=== PATIENT | male | born 1995 | race African-American/Black ===

== ENCOUNTER 2017-07-19 14:05 | Emergency (ER) | payer OTHER ==
[2017-07-19] MEDS ORDERED: Ondansetron INJ* 2 MG/ML VIAL IV ONE (14:51)
[2017-07-19] MEDS ORDERED: NS 0.9% 1000 ML* 1,000 ML IV ONE ×2 (14:51→17:38)
--- NOTE | 2017-07-19 14:57 | ED ---
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 This was preceded by chills/rigors. Tried to drink fluids last night and this morning - unable to hold anything down. Thirsty. Denies abdominal pain, diarrhea, urinary symptoms, testicular pain or swelling. No new foods or beverages. No sick contacts and he's shared past few meals with friends, they are not sick. Immunizations are up-to-date except for influenza. Denies URI symptoms. - History of Current Complaint Chief Complaint: EDNauseaVomitDiarrh Time Seen by Provider: 07/19/17 14:26 Stated Complaint: N/V Hx Obtained From: Patient Pain Intensity: 0 - Allergy/Home Medications Allergies/Adverse Reactions: Allergies Allergy/AdvReac Type Severity Reaction Status Date / Time lactulose Allergy Nausea And Verified 07/19/17 14:11 Vomiting PMH/Surg Hx/FS Hx/Imm Hx Previously Healthy: Yes GI History: Denies: Hx Cirrhosis, Hx Crohn's Disease, Hx Diverticulosis, Hx Gall Bladder Disease, Hx Gastroesophageal Reflux Disease, Hx Gastrointestinal Bleed, Hx Hiatal Hernia, Hx Irritable Bowel, Hx Obstructive Bowel, Hx Ulcer - Immunization History Immunizations Up to Date: Yes Infectious Disease History: No Infectious Disease History: Denies: Traveled Outside the [place] in Last 30 Days - Family History Known Family History: Positive: Diabetes - Social History Occupation: Student Lives: Dormitory/Roommates Alcohol Use: Weekly Substance Use Type: Reports: Marijuana - recreationally Hx Tobacco Use: Yes Smoking Status (MU): Current Some Day Smoker - Bidi's occasionally Review of Systems Positive: Chills, Fatigue ENT: Negative Cardiovascular: Negative Respiratory: Negative Positive: Vomiting, Nausea. Negative: Abdominal Pain, Diarrhea - still passing gas Genitourinary: Negative Negative: burning, dysuria, discharge, frequency, flank pain, hematuria, incontinence, pain, urgency - no penile d/c Musculoskeletal: Negative Skin: Negative Positive: Weakness - generalized Psychological: Normal All Other Systems Reviewed And Are Negative: Yes Physical Exam Triage Information Reviewed: Yes Vital Signs On Initial Exam: Initial Vitals Temp Pulse Resp BP Pulse Ox 98.8 F 100 16 119/68 99 07/19/17 14:07 07/19/17 14:07 07/19/17 14:07 07/19/17 14:07 07/19/17 14:07 Vital Signs Reviewed: Yes Appearance: Positive: No Pain Distress - appears mildly fatigued, Well-Nourished Skin: Positive: Warm, Skin Color Reflects Adequate Perfusion, Dry Head/Face: Positive: Normal Head/Face Inspection Eyes: Positive: Normal, EOMI, SCOT, Conjunctiva Clear ENT: Positive: Normal ENT inspection, Hearing grossly normal, Pharynx normal - oral mucosa somewhat moist, TMs normal, Uvula midline. Negative: Nasal congestion, Nasal drainage, Sinus tenderness Neck: Positive: Supple, Nontender, No Lymphadenopathy Respiratory/Lung Sounds: Positive: Clear to Auscultation, Breath Sounds Present. Negative: Rales, Rhonchi, Wheezes Cardiovascular: Positive: Normal, RRR - 72, S1, S2 Abdomen Description: Positive: Nontender, No Organomegaly, Soft. Negative: CVA Tenderness (R), CVA Tenderness (L), Distended, Guarding Bowel Sounds: Positive: Present Musculoskeletal: Positive: Normal, Strength/ROM Intact Neurological: Positive: Normal, Sensory/Motor Intact, Alert, Oriented to Person Place, Time, CN Intact II-III Psychiatric: Positive: Normal Diagnostics - Vital Signs Vital Signs Temp Pulse Resp BP Pulse Ox 07/19/17 14:07 98.8 F 100 16 119/68 99 - Laboratory Result Diagrams: 07/19/17 15:00 07/19/17 15:00 Lab Statement: Any lab studies that have been ordered have been reviewed, and results considered in the medical decision making process. Re-Evaluation - Re-Evaluation First Eval Change: Improved - resting - reports nausea resolved, reports "I think the fluids are helping" - still has 1/2 bag to go Second Eval Re-Evaluation Time: 18:48 Change: Improved Comment: gave another liter and feeling better GIGU Course/Dx - Course Course Of Treatment: Patient here with abrupt onset nausea and vomiting 23:45 last night. This was preceded by chills. He is initially afebrile with stable blood pressure and slightly increased heart rate. Reports generalized weakness from lack of eating and drinking. Last urine output was this morning. Denies abdominal pain. Initially reports improvement with IV fluids and resolution of nausea with Zofran. He is able to provide urine by ambulating to the bathroom but still feels fatigued. He has developed a fever while here of 101 Fahrenheit. Will provide acetaminophen and process urine sample for further information. He is able to tolerate by mouth at this time without difficulty. Vital signs have improved in re: heart rate and blood pressure. Signed out to Halina Mchugh PA-C in stable condition. - Diagnoses Provider Diagnoses: Vomiting, Gastroenteritis Discharge - Sign-Out/Discharge Documenting (check all that apply): Discharge - Discharge Plan Condition: Good Disposition: HOME Prescriptions: Ondansetron ODT TAB* [Zofran 4 MG Odt TAB*] 4 mg PO Q6H PRN #12 tab.odt PRN Reason: Nausea Patient Education Materials: Acute Nausea and Vomiting (ED) Forms: *School Release [facility] [Primary Care Provider] - Additional Instructions: Can take Zofran every 6 hours as needed for nausea Drink small amounts of fluid as tolerated When able to eat follow BRAT diet: Bananas, rice, applesauce, toast Take ibuprofen or Tylenol for pain as needed every 6 hours Follow up with primary within 5 days Return to ED if develop fever that does not respond to Tylenol or ibuprofen, severe abdominal pain, or any new or worsening symptoms - Billing Disposition and Condition Condition: GOOD Disposition: HOME
[2017-07-19 15:16] LABS: ABS Basophils 0 10^3/ul (0-0.2); ABS Eosinophils 0 10^3/ul (0-0.6); ABS Lymphocytes 0.3 10^3/ul (1.0-4.8); ABS Monocytes 0.5 10^3/ul (0-0.8); ABS Neutrophils 6.6 10^3/ul (1.5-7.7); Hematocrit 44 % (42-52); Hemoglobin 14.2 g/dl (14.0-18.0); Mean Corpuscular HGB Conc 32 g/dl (31-36); Mean Corpuscular Hemoglobin 23 pg (27-31); Mean Corpuscular Volume 71 fL (80-94); Mean Platelet Volume 6.9 um3 (7.4-10.4); Platelet Count 256 10^3/ul (150-450); Red Cell Distribution Width 13 % (10.5-15); White Blood Count 7.4 10^3/ul (3.5-10.8)
[2017-07-19 15:23] LABS: EGFR Non-African American 53.5 (>60)
[2017-07-19 15:29] LABS: ABS Nucleated RBC 0 10^3/ul; Eosinophil % 0.1 % (0-6); Lymphocyte % 3.9 % (25-47); Nucleated Red Blood Cells % 0
[2017-07-19] MEDS ORDERED: Acetaminophen TAB* 325 MG PO ONE (17:01)
[2017-07-19 17:14] LABS: Urine Appearance Clear; Urine Blood Negative (Negative); Urine Color Yellow; Urine Ketones 2+ (Negative); Urine Protein Negative (Negative); Urine Specific Gravity 1.026 (1.010-1.030); Urine Urobilinogen Negative (Negative)
--- NOTE | 2017-07-19 18:06 | ED ---
Progress - Progress Note Progress Note: Patient signed out by Lisa pending temperature reduction and observation. Patient was given a liter of fluid and is feeling better. We'll send home with nausea medication. Told to follow BRAT diet. Told to follow-up primary and if anything changes return to ED. Patient understands agrees with plan. Re-Evaluation - Re-Evaluation First Eval Change: Improved - resting - reports nausea resolved, reports "I think the fluids are helping" - still has 1/2 bag to go Second Eval Re-Evaluation Time: 18:48 Change: Improved Comment: gave another liter and feeling better Course/Dx - Course Course Of Treatment: Patient here with abrupt onset nausea and vomiting 23:45 last night. This was preceded by chills. He is initially afebrile with stable blood pressure and slightly increased heart rate. Reports generalized weakness from lack of eating and drinking. Last urine output was this morning. Denies abdominal pain. Initially reports improvement with IV fluids and resolution of nausea with Zofran. He is able to provide urine by ambulating to the bathroom but still feels fatigued. He has developed a fever while here of 101 Fahrenheit. Will provide acetaminophen and process urine sample for further information. He is able to tolerate by mouth at this time without difficulty. Vital signs have improved in re: heart rate and blood pressure. spoke with mom about food poisoning and if develops blood stool could be e coli and to return otherwise it is just supporatively therapy. - Diagnoses Provider Diagnoses: Vomiting Discharge - Sign-Out/Discharge Documenting (check all that apply): Receiving Sign-Out Receiving patient FROM: Lisa Mistry - Discharge Plan Condition: Good Disposition: HOME Prescriptions: Ondansetron ODT TAB* [Zofran 4 MG Odt TAB*] 4 mg PO Q6H PRN #12 tab.odt PRN Reason: Nausea Patient Education Materials: Acute Nausea and Vomiting (ED) Forms: *School Release Referrals: [facility] [Primary Care Provider] - Additional Instructions: Can take Zofran every 6 hours as needed for nausea Drink small amounts of fluid as tolerated When able to eat follow BRAT diet: Bananas, rice, applesauce, toast Take ibuprofen or Tylenol for pain as needed every 6 hours Follow up with primary within 5 days Return to ED if develop fever that does not respond to Tylenol or ibuprofen, severe abdominal pain, or any new or worsening symptoms - Billing Disposition and Condition Condition: GOOD Disposition: HOME
[2017-07-19] MEDS ORDERED: O ndansetron ODT 4MG 2TAB PRPK 4 MG PAK PO ONE (18:47)
[2017-07-19 19:13] VITALS: BP 138/62
== END 2017-07-19 19:11 | disposition home or self-care (01) ==
LOC: ED 14:05
DX: K52.9 Noninfective gastroenteritis and colitis, unspecified (principal); F17.200 Nicotine dependence, unspecified, uncomplicated
CPT/HCPCS: 36415; 80053; 81003; 83605; 83690; 83735; 85025; 86140; 87491; 87591; 96360; 96361; 96374; 99282; A9270-GY; J2405